=== PATIENT | female | born 1955 | race Caucasian/White ===

== ENCOUNTER 2016-06-15 21:48 | Emergency (ER) | payer MEDICAID ==
[~2016-06-15] VITALS: Ht 170.2 cm; Wt 81.6 kg
[2016-06-15] MEDS ORDERED: DEXAMETHASONE SOD PHOSPHATE 10 MG/ML VIAL ONE (21:58)
[2016-06-15] MEDS ORDERED: DEXAMETHASONE SOD PHOSPHATE 10 MG/ML VIAL IV ONE (22:00)
[2016-06-15] MEDS ORDERED: ALBUTEROL FS 2.5 MG/3 ML VIAL.NEB CONTNEB ONE (22:00)
[2016-06-15] MEDS ORDERED: ALBUTEROL FS 2.5 MG/3 ML VIAL.NEB ONE (22:03)
[2016-06-16] MEDS ORDERED: ALBUTEROL FS 2.5 MG/3 ML VIAL.NEB NEB ONE (00:30)
[2016-06-16 00:52] VITALS: BP 120/84
== END 2016-06-16 00:52 | disposition home or self-care (01) ==
LOC: ER 21:48
DX: J45.901 Unspecified asthma with (acute) exacerbation (principal); J06.9 Acute upper respiratory infection, unspecified; Z98.49 Cataract extraction status, unspecified eye
CPT/HCPCS: 94640; 94644; 96374; 99285; A4606; J1100; Z7610